=== PATIENT | male | born 1950 | race Caucasian/White ===

== ENCOUNTER 2019-01-29 17:04 | Emergency (ER) | payer MEDICARE, OTHER ==
[~2019-01-29] VITALS: Ht 180.3 cm; Wt 93.0 kg
[2019-01-30] MEDS ORDERED: HEPARIN SODIUM (PORCINE) 5000 UNITS/ML 1ML VIAL IV ONE ×2 (02:00→02:15)
[2019-01-30 02:20] VITALS: BP 116/68
== END 2019-01-30 02:27 | disposition home or self-care (01) ==
LOC: ER 17:04
DX: T82.898A Other specified complication of vascular prosthetic devices, implants and grafts, initial encounter (principal)
CPT/HCPCS: 99285; J1642